=== PATIENT | male | born 1970 ===

== ENCOUNTER → 2023-11-27 | Outpatient (CLI) | payer MEDICAID | END | disposition home or self-care (01) | LOC: Rad HDHVI 15:36 | PROVIDERS: ATTEND Internal Medicine Cardiovascular Disease | DX: I11.9 Hypertensive heart disease without heart failure (principal) | CPT/HCPCS: 93306 ==

== ENCOUNTER → 2023-12-02 | Outpatient (CLI) | payer MEDICAID ==
[~2023-12-02] VITALS: Ht 172.7 cm; Wt 102.5 kg
== END | disposition home or self-care (01) ==
LOC: Rad HDHVI 09:01
PROVIDERS: ATTEND Internal Medicine Cardiovascular Disease
DX: R00.0 Tachycardia, unspecified (principal); E78.00 Pure hypercholesterolemia, unspecified; I10 Essential (primary) hypertension
CPT/HCPCS: 78452; 93017; 96374; A9500

== ENCOUNTER 2025-09-06 08:32 | Outpatient (CLI) | payer MEDICAID ==
[~2025-09-06] VITALS: Ht 172.7 cm; Wt 101.2 kg
--- NOTE | 2025-09-17 13:57 | DVHSR ---
APPROVED REPORT Exam: Nuclear Stress Test Indication: Screening for CAD Ht: 5 ft 8 in Wt: 223 lbs BSA: 2.14 m2 HR: 93 bpm BP: 107/75 mmHg BMI: 33.90 Rhythm: NSR Medical History Medical History: HTN, Hypercholesterolemia, Diabetes, SOB, Abnormal EKG Medications: [place] 3, Atenolol, Lisinopril, Vit D3, Atorvastatin, Basaglar, Ozempic Allergies: Cipro Stress Test Details Stress Test: Exercise stress testing was performed using a Bucky protocol. HR Resting HR: 93 bpm Max Heart Rate (APMHR): 166.550028 bpm Max HR Achieved: 148 bpm Target HR (85% APMHR): 141.268061 bpm % of APMHR: 89.16 Recovery HR: 107 bpm HR response to stress: Normal HR response to stress BP Resting BP: 107/75 mmHg Max BP: 168/75 mmHg Recovery BP: 110/71 mmHg BP response to stress: Normal blood pressure response to stress. ECG Resting ECG: Sinus Rhythm Stress ECG: Sinus Tachycardia Arrhythmia: none Recovery ECG: Sinus Tachycardia Clinical Reason for Termination: target HR achieved Stress Symptoms: none Exercise duration: 4 min 34 sec Exercise capacity: 7.00 METs Stress ECG Conclusion NON ISCHEMIC CLINICAL RESPONSE NON ISCHEMIC ECG RESPONSE NON ISCHEMIC CARDIOLITE PERFUSION SCAN EF >55% NM EXAM: Myocardial Perfusion REST/STRESS Imaging Protocol: Rest Tc-99m/Stress Tc-99m 1 day Resting Data Rest SPECT myocardial perfusion imaging was performed in supine position 30 minutes following the intravenous injection of 10.98 mCi of Tc-99m Sestamibi. Time of rest injection: 840 Date: 09/06/2025 Time of rest imagin Date: 09/06/2025 Administration Route: IV Administration Site: Left AC Exercise Stress At peak stress, the patient was injected intravenously with 32.8 mCi of Tc-99m Sestamibi. Time of stress injection: 101 Date: 09/06/2025 Time of stress imagin Date: 09/06/2025 Administration Route: IV Administration Site: Left AC Heart Rate at time of stress injection: 148 bpm. Patient continued to exercise for 1 minute(s). Gated Stress SPECT was performed 15 minutes after stress injection. The images were gated to evaluate regional wall motion and calculate left ventricular ejection fraction. Comments Cardiolite injection at 3 minutes, 32 seconds into test. Nuclear Conclusion NON ISCHEMIC CLINICAL RESPONSE NON ISCHEMIC ECG RESPONSE NON ISCHEMIC CARDIOLITE PERFUSION SCAN EF >55%
== END 2025-09-06 17:00 | disposition home or self-care (01) ==
LOC: Rad HDHVI 08:32
PROVIDERS: ATTEND Internal Medicine Cardiovascular Disease
DX: R00.0 Tachycardia, unspecified (principal); Z13.6 Encounter for screening for cardiovascular disorders; I10 Essential (primary) hypertension; E11.9 Type 2 diabetes mellitus without complications; E78.00 Pure hypercholesterolemia, unspecified; R06.02 Shortness of breath; R94.31 Abnormal electrocardiogram [ECG] [EKG]
CPT/HCPCS: 78452; 93017; A9500; 96374